=== PATIENT | male | born 1965 | race Caucasian/White ===

== ENCOUNTER → 2018-08-03 | Outpatient (CLI) | payer OTHER ==
[2018-08-03 09:39] LABS: microscopic required? NO
[2018-08-03 10:03] LABS: UA SPECIFIC GRAVITY <=1.005 (1.005-1.035); urine erythrocyte NEGATIVE (NEGATIVE)
[2018-08-03 10:30] LABS: BASOPHIL % 0.6 % (0-2); PLATELET COUNT 256 x10^3mcL (130-400)
[2018-08-03 10:47] LABS: ALKALINE PHOSPHATASE 66 U/L (46-116); ALT/SGPT 61 U/L (16-63); AST/SGOT 27 U/L (15-37); CALCIUM 8.6 mg/dL (8.5-10.1); CHOLESTEROL 137 mg/dL (<200); CHOLESTEROL/HDL RATIO 3.9; CREATININE SERUM 0.8 mg/dL (0.7-1.3); GFR1 > 60 mL/min; GLUCOSE SERUM 127 mg/dL (74-106); HDL CHOLESTEROL 35 mg/dL (40-60); TRIGLYCERIDES 99 mg/dL (<150)
[2018-08-03 10:48] LABS: CARBON DIOXIDE 28.3 mmol/L (21-32); CHLORIDE SERUM 106 mmol/L (98-107); POTASSIUM SERUM 4.1 mmol/L (3.5-5.1); SODIUM SERUM 143 mmol/L (136-145)
== END | disposition home or self-care (01) ==
LOC: LB 09:17 → EDSEX 09:17
DX: R07.9 Chest pain, unspecified (principal)
CPT/HCPCS: 84153

== ENCOUNTER 2018-11-30 14:33 | Inpatient (IN) | payer OTHER ==
[~2018-11-30] VITALS: Ht 165.1 cm; Wt 83.9 kg
[2018-11-30 14:37] VITALS: Ht 165.1 cm; Wt 83.9 kg
[2018-11-30 15:00] LABS: BASOPHIL % 0.6 % (0-2); PLATELET COUNT 281 x10^3mcL (130-400); RED CELL DISTRIBUTION WIDTH 13.1 % (11.5-14.5)
[2018-11-30 15:08] LABS: CALCIUM 9.6 mg/dL (8.5-10.1); CARBON DIOXIDE 29.9 mmol/L (21-32); CHLORIDE SERUM 103 mmol/L (98-107); CREATININE SERUM 0.9 mg/dL (0.7-1.3); GFR1 > 60 mL/min; GLUCOSE SERUM 118 mg/dL (74-106); POTASSIUM SERUM 3.5 mmol/L (3.5-5.1); SODIUM SERUM 141 mmol/L (136-145)
[2018-11-30 15:14] LABS: ALBUMIN 4.2 g/dL (3.4-5.0); ALKALINE PHOSPHATASE 74 U/L (46-116); ALT/SGPT 54 U/L (16-63); AST/SGOT 17 U/L (15-37); BILIRUBIN TOTAL 0.54 mg/dL (0.20-1.00)
[2018-11-30 15:19] LABS: TOTAL PROTEIN, SERUM 8.4 g/dL (6.4-8.2)
[2018-11-30] MEDS ORDERED: GLU850 PO (17:53)
[2018-11-30] MEDS ORDERED: LIPI20 PO (17:53)
[2018-11-30] MEDS ORDERED: ASPIRIN CHILDRE81 MG PO (17:54)
[2018-11-30 18:27] LABS: CHOLESTEROL/HDL RATIO 4.5; MAGNESIUM 2.1 mg/dL (1.8-2.4)
[2018-11-30 19:16] VITALS: BP 144/103
[2018-12-01 02:25] LABS: microscopic required? NO
[2018-12-01 02:47] LABS: UA SPECIFIC GRAVITY 1.025 (1.005-1.035); urine erythrocyte NEGATIVE (NEGATIVE)
[2018-12-01 06:21] VITALS: BP 101/56
[2018-12-01 07:16] LABS: BASOPHIL % 0.4 % (0-2); PLATELET COUNT 240 x10^3mcL (130-400); RED CELL DISTRIBUTION WIDTH 12.8 % (11.5-14.5)
[2018-12-01 08:23] LABS: CARBON DIOXIDE 21.8 mmol/L (21-32); CHLORIDE SERUM 105 mmol/L (98-107); CREATININE SERUM 0.8 mg/dL (0.7-1.3); GFR1 > 60 mL/min; GLUCOSE SERUM 132 mg/dL (74-106); POTASSIUM SERUM 3.6 mmol/L (3.5-5.1); SODIUM SERUM 141 mmol/L (136-145)
[2018-12-01 09:51] VITALS: BP 117/78
== END 2018-12-01 11:34 | disposition home or self-care (01) | DRG 303 ==
LOC: ED 14:33 → DU 17:54
PROVIDERS: ADMIT Internal Medicine
DX: I25.119 Atherosclerotic heart disease of native coronary artery with unspecified angina pectoris (principal); E11.9 Type 2 diabetes mellitus without complications; E78.00 Pure hypercholesterolemia, unspecified; E78.5 Hyperlipidemia, unspecified; Z82.49 Family history of ischemic heart disease and other diseases of the circulatory system
CPT/HCPCS: 82962

== ENCOUNTER → 2020-03-23 | Outpatient (CLI) | payer OTHER ==
[~2020-03-23] MED LIST: ASPIRIN CHILDRE81 MG PO; GLU850 PO; LIPI20 PO
[2020-03-23 10:37] LABS: ALBUMIN 4.1 g/dL (3.4-5.0); ALKALINE PHOSPHATASE 53 U/L (46-116); ALT/SGPT 65 U/L (16-63); AST/SGOT 26 U/L (15-37); BILIRUBIN TOTAL 0.5 mg/dL (0.20-1.00); CALCIUM 9.4 mg/dL (8.5-10.1); CARBON DIOXIDE 24.4 mmol/L (21-32); CHLORIDE SERUM 100 mmol/L (98-107); CHOLESTEROL 227 mg/dL (<200); CHOLESTEROL/HDL RATIO 6.3; CREATININE SERUM 0.9 mg/dL (0.7-1.3); GFR1 > 60 mL/min; GLUCOSE SERUM 159 mg/dL (74-106); HDL CHOLESTEROL 36 mg/dL (40-60); POTASSIUM SERUM 3.8 mmol/L (3.5-5.1); SODIUM SERUM 135 mmol/L (136-145); TRIGLYCERIDES 204 mg/dL (<150)
[2020-03-24 08:07] LABS: microalbumin:creatinine ratio < 8 (0-29)
== END | disposition home or self-care (01) ==
LOC: LB 09:49
DX: E11.9 Type 2 diabetes mellitus without complications (principal); E55.9 Vitamin D deficiency, unspecified